=== PATIENT | male | born 1950 | race Caucasian/White ===

== ENCOUNTER → 2017-05-03 | Outpatient (CLI) | payer MEDICARE, OTHER ==
[2017-05-03 07:21] LABS: Blood Urea Nitrogen 20 mg/dL (9-20); Non-African American GFR(MDRD) >60 (>60 ml/min/1.73 sqM)
--- NOTE | 2017-05-03 09:14 | CT ---
EXAMINATION TYPE: CT abdomen pelvis w con DATE OF EXAM: 05/03/2017 COMPARISON: Prior CT abdomen pelvis 05/31/2013 HISTORY: Diverticulitis CT DLP: 1143.4 mGycm Automated exposure control for dose reduction was used. TECHNIQUE: Helical acquisition of images from the lung bases through the pelvis have been completed. CONTRAST: Performed with Oral Contrast and with IV Contrast, patient injected with 100 mL of Omnipaque 300. FINDINGS: Postop changes are noted at the gastroesophageal junction which have been placed in the int erval. LUNG BASES: No significant abnormality is appreciated. AORTA: No significant abnormality is appreciated. LIVER/GB: Gallbladder is absent. Cholecystectomy has been performed in the interval. Liver shows low attenuation but improved as compared to prior exam. PANCREAS: There is low attenuation present in the head of pancreas, uncinate process which is new com pared to prior exam.. SPLEEN: No significant abnormality is seen. ADRENALS: No significant abnormality is seen. KIDNEYS: No significant abnormality is seen. REPRODUCTIVE ORGANS: No significant abnormality is seen BOWEL: No significant abnormality is seen. FREE AIR: No Free Air visible. ASCITES: None visible. PELVIC ADENOPATHY: None visualized. Left inguinal hernia contains fat. RETROPERITONEAL ADENOPATHY: No Retroperitoneal Adenopathy visible. URINARY BLADDER: No significant abnormality is seen. OSSEOUS STRUCTURES: Postop changes are noted lumbar spine, new compared to prior. IMPRESSION: FINDINGS SUGGESTIVE OF PANCREATIC HEAD MASS, CONSIDER MRI FOLLOW-UP. Suggestion additional findings jeffrey fuentes.
== END | disposition home or self-care (01) ==
LOC: RADCTMAIN 06:27
PROVIDERS: ATTEND Surgery
DX: K57.32 Diverticulitis of large intestine without perforation or abscess without bleeding (principal)
CPT/HCPCS: 82565; 84520; 74177; 36415; Q9967

== ENCOUNTER → 2018-05-30 | Day surgery (SDC) | payer MEDICARE, OTHER ==
[2018-05-26 10:18] VITALS: BMI 26.6
[~2018-05-30] MED LIST: ALBUTEROL NEBULIZED 2.5 MG/3 ML INHALATION STA; LACTATED RINGERS 1,000 ML IV SCH; LIDOCAINE 1% 20 ML VIAL (10MG/ML) FOR IV START INTRADERMA PRN; LIDOCAINE 1% INJ 10MG/ML (20 ML MDV) ONE; LIDOCAINE 4% (PF) 5 ML AMP IH STA; MIDAZOLAM (PF) 2 MG/2 ML VIAL IV PRN; PROPOFOL 10 MG/ML 20 ML VIAL IV ONE
[2018-05-30 08:38] LABS: Glucose,Whole Blood 139 mg/dL (75-99)
[2018-05-30 08:49] VITALS: TEMP 98.2
--- NOTE | 2018-05-30 09:47 | P.GSHP ---
History of Present Illness H&P Date: 05/30/18 Chief Complaint: Gastritis, epigastric pain This is a 67-year-old male who presents today for EGD. Patient's had complaints of gastritis and epigastric pain. Had a recent pancreatic MRI which is normal. Past Medical History Past Medical History: Asthma, Cancer, CVA/TIA, Diabetes Mellitus, GERD/Reflux, Hypertension, Myocardial Infarction ([place]), Musculoskeletal Disorder, Osteoarthritis (OA), Pneumonia Additional Past Medical History / Comment(s): TIA, hiatal hernia, hx. 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 shoulder ; rt ing hernia, eye lid surgery ; sinus polyps, mike fundloplication, COLONOSCOPY, EGD Past Anesthesia/Blood Transfusion Reactions: Previous Problems w/ Anesthesia Additional Past Anesthesia/Blood Transfusion Reaction / Comment(s): very slow to wake up, aspirated during an endo. procedure Smoking Status: Current every day smoker - Past Family History Mother Family Medical History: No Reported History Medications and Allergies Home Medications Medication Instructions Recorded Confirmed Type Cyclobenzaprine [Flexeril] 10 mg PO TID PRN 06/11/15 05/30/18 History Liraglutide [Victoza 2-Blaise] 1.8 mg SQ 1200 06/11/15 05/30/18 History HYDROcodone/APAP 7.5-325MG [[place] 1 tab PO Q6HR PRN #28 tab 07/03/15 05/30/18 Rx 7.5-325] Lisinopril [Zestril] 10 mg PO DAILY #30 tab 07/04/15 05/30/18 Rx amLODIPine [Norvasc] 5 mg PO DAILY #30 tab 07/04/15 05/30/18 Rx Ipratropium [place] [Atrovent Hfa] 2 puff INHALATION QID 05/21/16 05/30/18 History Dapagliflozin Propanediol [Farxiga] 10 mg PO DAILY 05/26/18 05/30/18 History Allergies Allergy/AdvReac Type Severity Reaction Status Date / Time mold Allergy Anaphylaxis Verified 05/30/18 08:10 prochlorperazine Allergy affected Verified 05/30/18 08:10 [From Compazine] liver function prochlorperazine edisylate Allergy affected Verified 05/30/18 08:10 [From Compazine] liver function prochlorperazine maleate Allergy affected Verified 05/30/18 08:10 [From Compazine] liver function Surgical - Exam Vital Signs Temp Pulse BP Pulse Ox 98.2 F 80 145/72 98 05/30/18 08:20 05/30/18 08:20 05/30/18 08:20 05/30/18 08:20 - General well developed, no distress - Eyes PERRL - ENT normal pinna - Neck no masses - Respiratory normal expansion - Cardiovascular Rhythm: regular - Abdomen Abdomen: soft, non tender Results - Labs Abnormal Lab Results - Last 24 Hours (Table) 05/30/18 Range/Units 08:27 POC Glucose (mg/dL) 139 H (75-99) mg/dL Assessment and Plan Assessment: Epigastric pain, gastritis. We'll perform EGD.
--- NOTE | 2018-05-30 09:54 | P.OP ---
Date of Procedure: 05/30/18 Preoperative Diagnosis: Gastritis Postoperative Diagnosis: Mild antral gastritis No evidence of hiatal hernia No evidence of esophagitis Procedure(s) Performed: EGD Anesthesia: MAC Surgeon: Adrián Cook Pathology: other (Antrum,s) Condition: stable Disposition: PACU Description of Procedure: The patient's placed on the endoscopy table in the lateral position. He received IV sedation. The gastroscope placed oropharynx passed in the esophagus and stomach. Scope was then placed through the pylorus. The first and second portion duodenum appeared normal. Scope was then brought back the antrum this was mildly inflamed. A biopsies performed. Scope was then retroflexed the remainder some appeared normal. There is known to hiatal hernia. The GE junction was at 40 cm the distal esophagus appeared normal. The proximal esophagus appeared normal. Scope was withdrawn for patient.
[2018-05-30 11:04] VITALS: BP 155/76; PULSE 73; RESP 16
[2018-05-30 11:17] LABS: Glucose,Whole Blood 122 mg/dL (75-99)
== END | disposition home or self-care (01) ==
LOC: ORWHC2ENDO 07:49
PROVIDERS: ATTEND Surgery
DX: K29.50 Unspecified chronic gastritis without bleeding (principal); K21.9 Gastro-esophageal reflux disease without esophagitis; K44.9 Diaphragmatic hernia without obstruction or gangrene; J45.909 Unspecified asthma, uncomplicated; I25.2 Old myocardial infarction; I10 Essential (primary) hypertension; E11.9 Type 2 diabetes mellitus without complications; M19.90 Unspecified osteoarthritis, unspecified site; L40.9 Psoriasis, unspecified; Z86.73 Personal history of transient ischemic attack (TIA), and cerebral infarction without residual deficits; G43.909 Migraine, unspecified, not intractable, without status migrainosus; Z86.14 Personal history of Methicillin resistant Staphylococcus aureus infection; Z79.899 Other long term (current) drug therapy; Z88.8 Allergy status to other drugs, medicaments and biological substances; F17.210 Nicotine dependence, cigarettes, uncomplicated; Z79.4 Long term (current) use of insulin
CPT/HCPCS: 94640; 88305; 43239; J2001; J2704

== ENCOUNTER 2018-06-18 21:00 | Emergency (ER) | payer MEDICARE, OTHER ==
[2018-06-18] MEDS ORDERED: SODIUM CHLORIDE 0.9% 1,000 ML IV ONE (21:39)
[2018-06-18 21:41] VITALS: RESP 18
[2018-06-18] MEDS ORDERED: ONDANSETRON 4 MG/2 ML VIAL IVP STA (21:41)
[2018-06-18] MEDS ORDERED: METHOCARBAMOL 500 MG TAB PO STA (21:46)
[2018-06-18 22:44] LABS: Basophils % (A) 0 %; Eosinophils % (A) 0 %; HCT 54.4 % (39.0-53.0); HGB 17.7 gm/dL (13.0-17.5); Lymphocytes # (A) 0.7 k/uL (1.0-4.8); Lymphocytes % (A) 5 %; MCH 29.9 pg (25.0-35.0); MCHC 32.6 g/dL (31.0-37.0); MCV 91.8 fL (80.0-100.0); Mean Platelet Volume 7.3; Monocytes # (A) 0.5 k/uL (0-1.0); Monocytes % (A) 4 %; Neutrophils # (A) 12.4 k/uL (1.3-7.7); Neutrophils % (A) 90 %; Platelet Count 230 k/uL (150-450); RBC 5.92 m/uL (4.30-5.90); RDW 13.2 % (11.5-15.5); WBC 13.8 k/uL (3.8-10.6)
--- NOTE | 2018-06-18 22:46 | ED ---
Abdominal Pain HPI - General Chief Complaint: Abdominal Pain Stated Complaint: Back and Flank pt Time Seen by Provider: 06/18/18 21:29 Source: patient, EMS Mode of arrival: EMS Limitations: no limitations - History of Present Illness Initial Comments: 67-year-old male presenting with intermittent left-sided flank pain that began yesterday, is not alleviated or exacerbated by anything, occur sporadically, and resolved spontaneously. CT try to Flexeril and a [place] without relief. Admits to constipation and states he is a history of diverticulitis. His last colonoscopy was 2 years prior and he states it was normal. He admits to nausea but denies any vomiting, fevers or chills, urinary symptoms, hematuria, history of kidney stones. Denies chest pain or shortness breath. Denies injury to the area. - Related Data Home Medications Medication Instructions Recorded Confirmed Cyclobenzaprine [Flexeril] 10 mg PO TID PRN 06/11/15 05/30/18 Liraglutide [Victoza 2-Blaise] 1.8 mg SQ 1200 06/11/15 05/30/18 Ipratropium [place] [Atrovent Hfa] 2 puff INHALATION QID 05/21/16 05/30/18 Dapagliflozin Propanediol [Farxiga] 10 mg PO DAILY 05/26/18 05/30/18 Previous Rx's Medication Instructions Recorded HYDROcodone/APAP 7.5-325MG [[place] 1 tab PO Q6HR PRN #28 tab 07/03/15 7.5-325] Lisinopril [Zestril] 10 mg PO DAILY #30 tab 07/04/15 amLODIPine [Norvasc] 5 mg PO DAILY #30 tab 07/04/15 Magnesium Citrate [Citrate of 296 ml PO ONCE #296 ml 06/19/18 Magnesia] Methocarbamol [Robaxin] 1,000 mg PO QID PRN #12 tab 06/19/18 Allergies Allergy/AdvReac Type Severity Reaction Status Date / Time mold Allergy Anaphylaxis Verified 05/30/18 08:10 prochlorperazine Allergy affected Verified 05/30/18 08:10 [From Compazine] liver function prochlorperazine edisylate Allergy affected Verified 05/30/18 08:10 [From Compazine] liver function prochlorperazine maleate Allergy affected Verified 05/30/18 08:10 [From Compazine] liver function Review of Systems ROS Statement: Those systems with pertinent positive or pertinent negative responses have been documented in the HPI. Review of Systems Constitutional: Denies fever, chills Eyes: Denies change in vision, Denies pain Ears, nose, mouth, throat: Denies headaches, Denies sore throat Cardiovascular: Denies chest pain. Denies palpitations Respiratory: Denies shortness of breath, Denies cough Gastrointestinal: Positive abdominal pain. Positive nausea, denies vomiting, diarrhea. Genitourinary: Denies hematuria, Denies infections Musculoskeletal: Denies pain, Denies swelling Integumentary: Denies rash Neurological: Denies headache, focal weakness, focal numbness Psychiatric: Denies anxiety, Denies depression Hematologic/Lymphatic: Denies easy bleeding or bruising ROS Other: All systems not noted in ROS Statement are negative. Past Medical History Past Medical History: Asthma, Cancer, CVA/TIA, Diabetes Mellitus, GERD/Reflux, Hypertension, Myocardial Infarction ([place]), Musculoskeletal Disorder, Osteoarthritis (OA), Pneumonia Additional Past Medical History / Comment(s): TIA, hiatal hernia, hx. 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 shoulder ; rt ing hernia, eye lid surgery ; sinus polyps, mike fundloplication, COLONOSCOPY, EGD Past Anesthesia/Blood Transfusion Reactions: Previous Problems w/ Anesthesia Additional Past Anesthesia/Blood Transfusion Reaction / Comment(s): very slow to wake up, aspirated during an endo. procedure Past Psychological History: Depression Smoking Status: Current every day smoker - Past Family History Mother Family Medical History: No Reported History General Exam - General Exam Comments Initial Comments: General: Awake, alert, No acute Distress HENT: Normocephalic. Atraumatic Eyes: PERRL. EOMI. No scleral icterus. No injected conjunctiva Neck: Full ROM Chest/Lungs: Clear to auscultation bilaterally. No wheezing, rhonchi, or rales Cardiac: Regular rate, rhythm. No murmurs or rubs Abdomen/GI: Soft, nontender, nondistended. No rebound, guarding, or rigidity. Musculoskeletal: Full ROM Skin: Warm, dry, intact Neurologic: A/Ox3, no weakness, no sensory deficit, no abnormal gait, no coordination deficit Limitations: no limitations Course Vital Signs 06/18/18 21:20 Temperature 99.2 F Pulse Rate 58 L Respiratory 18 Rate Blood Pressure 139/83 O2 Sat by Pulse 98 Oximetry Medical Decision Making - Medical Decision Making 67-year-old male presenting with left flank pain and constipation. An initial exam the patient is awake, alert, no acute distress. VSS. Patient's EKG was similar to previous. He had no saddle anesthesia or midline back pain. His laboratory workup revealed hyperkalemia however the specimen was hemolyzed and the patient had no hyperkalemic changes on EKG. He also had normal kidney function, therefore at this time unlikely that he actually has hyperkalemia. The patient did have an elevated hematocrit suggestive of some dehydration. He was given 1 L of IV fluids on the department. The patient never complained of any chest pain or shortness of breath, however troponin and chest x-ray were done to exclude atypical ACS presentation. Patient underwent a CT abdomen with and without which demonstrated constipation but otherwise was negative for acute process. On reevaluation the patient was sleeping comfortably in his room. He did have a leukocytosis on his laboratory workup however there is no evidence of infection on his exam. Review patient's previous records shows that he has had leukocytosis before unrelated to an infection. The patient was agreeable to outpatient follow-up. He did not provide a urinary sample however it is unlikely has UTI as he is not complaining of any testicular or penile pain , urinary symptoms, nor does he is a history of UTI. The patient was given prescriptions for Robaxin and magnesium citrate.No further emergent workup indicated. The patient was given return to ED instructions. They were instructed to follow up with their primary care provider. Stable for discharge at this time. - Lab Data Result diagrams: 06/18/18 22:25 06/18/18 22:25 Lab Results 06/18/18 06/18/18 06/18/18 Range/Units 22:25 22:25 22:25 WBC 13.8 H (3.8-10.6) k/uL RBC 5.92 H (4.30-5.90) m/uL Hgb 17.7 H (13.0-17.5) gm/dL Hct 54.4 H (39.0-53.0) % MCV 91.8 (80.0-100.0) fL MCH 29.9 (25.0-35.0) pg MCHC 32.6 (31.0-37.0) g/dL RDW 13.2 (11.5-15.5) % Plt Count 230 (150-450) k/uL Neutrophils % 90 % Lymphocytes % 5 % Monocytes % 4 % Eosinophils % 0 % Basophils % 0 % Neutrophils # 12.4 H (1.3-7.7) k/uL Lymphocytes # 0.7 L (1.0-4.8) k/uL Monocytes # 0.5 (0-1.0) k/uL Eosinophils # 0.0 (0-0.7) k/uL Basophils # 0.0 (0-0.2) k/uL Sodium 137 (137-145) mmol/L Potassium 6.0 H (3.5-5.1) mmol/L Chloride 101 (98-107) mmol/L Carbon Dioxide 23 (22-30) mmol/L Anion Gap 13 mmol/L BUN 21 H (9-20) mg/dL Creatinine 0.88 (0.66-1.25) mg/dL Est GFR (CKD-EPI)AfAm >90 (>60 ml/min/1.73 sqM) Est GFR (CKD-EPI)NonAf 90 (>60 ml/min/1.73 sqM) Glucose 157 H (74-99) mg/dL Calcium 9.7 (8.4-10.2) mg/dL Troponin I (0.000-0.034) ng/mL NT-Pro-B Natriuret Pep 43 pg/mL 06/18/18 Range/Units 22:25 WBC (3.8-10.6) k/uL RBC (4.30-5.90) m/uL Hgb (13.0-17.5) gm/dL Hct (39.0-53.0) % MCV (80.0-100.0) fL MCH (25.0-35.0) pg MCHC (31.0-37.0) g/dL RDW (11.5-15.5) % Plt Count (150-450) k/uL Neutrophils % % Lymphocytes % % Monocytes % % Eosinophils % % Basophils % % Neutrophils # (1.3-7.7) k/uL Lymphocytes # (1.0-4.8) k/uL Monocytes # (0-1.0) k/uL Eosinophils # (0-0.7) k/uL Basophils # (0-0.2) k/uL Sodium (137-145) mmol/L Potassium (3.5-5.1) mmol/L Chloride (98-107) mmol/L Carbon Dioxide (22-30) mmol/L Anion Gap mmol/L BUN (9-20) mg/dL Creatinine (0.66-1.25) mg/dL Est GFR (CKD-EPI)AfAm (>60 ml/min/1.73 sqM) Est GFR (CKD-EPI)NonAf (>60 ml/min/1.73 sqM) Glucose (74-99) mg/dL Calcium (8.4-10.2) mg/dL Troponin I <0.012 (0.000-0.034) ng/mL NT-Pro-B Natriuret Pep pg/mL - EKG Data EKG Comments: EKG shows normal sinus rhythm at a rate of 62 bpm. It is similar to EKG from . Disposition Clinical Impression: Left flank pain, Constipation, Leukocytosis, Dehydration Disposition: HOME SELF-CARE Condition: Good Instructions: Constipation (ED), Abdominal Pain (ED), Flank Pain (ED) Prescriptions: Magnesium Citrate [Citrate of Magnesia] 296 ml PO ONCE #296 ml Methocarbamol [Robaxin] 1,000 mg PO QID PRN #12 tab PRN Reason: Pain Is patient prescribed a controlled substance at d/c from ED?: Yes When asked, does pt state using other controlled substances?: Yes If prescribed controlled substance>3 days was MAPS reviewed?: Prescribed <3 Days If Rx opioid, was Start Talking consent form obtained?: No Referrals: Evelia Dodd DO [Primary Care Provider] - 1-2 days
--- NOTE | 2018-06-18 22:50 | XR ---
EXAMINATION TYPE: XR chest 2V DATE OF EXAM: 06/18/2018 COMPARISON: NONE HISTORY: Chest pain TECHNIQUE: Frontal and lateral views of the chest are obtained. FINDINGS: Heart and mediastinum are normal. Lungs are clear of infiltrate. There is no pleural effus ion. Bony thorax is intact. IMPRESSION: No active cardiopulmonary disease.
[2018-06-18 22:58] LABS: Anion Gap 13 mmol/L; Blood Urea Nitrogen 21 mg/dL (9-20); Calcium 9.7 mg/dL (8.4-10.2); Carbon Dioxide 23 mmol/L (22-30); Chloride 101 mmol/L (98-107); Glucose 157 mg/dL (74-99); Sodium 137 mmol/L (137-145)
--- NOTE | 2018-06-19 00:44 | CT ---
EXAMINATION TYPE: CT abdomen pelvis wo/w con DATE OF EXAM: 06/19/2018 COMPARISON: 05/03/2017 HISTORY: abdominal pain CT DLP: 1764.7 mGycm Automated exposure control for dose reduction was used. TECHNIQUE: Helical acquisition of images was performed from the lung bases through the pelvis. Images were obtained with and without contrast. CONTRAST: Performed without Oral Contrast and with IV Contrast, patient injected with 100mL mL of Isovue 300. FINDINGS: There is patchy atelectasis at the lung bases. There is no pleural effusion. Heart size is normal. Th e liver shows no focal defect. There is no adrenal mass. Kidneys of normal size and contour. There is satisfactory contrast opacification of the kidneys. There is no hydronephrosis. Ureters are not dila doron. There is no retroperitoneal adenopathy. Abdominal aorta is atheromatous. Bladder distends smooth ly. There is no inguinal hernia. There is no free fluid in the pelvis. There is a large amount of fec al material in the cecum. The appendix appears normal. There are some sigmoid diverticula without luis dence of diverticulitis. There is no mesenteric edema. Liver spleen pancreas appear normal. Bile ducts are not dilated. Gallbladder is not seen. There is posterior fusion surgery from L2 to S1 vertebra. I see no compression fracture. There is no focal bony destructive process. The bony pelvis is intact. There is no sign of free air.. IMPRESSION: THERE IS SOME CONSTIPATION. NO EVIDENCE OF DIVERTICULITIS. NO RENAL STONE OR OBSTRUCTION. THERE IS NE W ATELECTASIS AT THE LUNG BASES COMPARED TO OLD EXAM.
[2018-06-19 01:28] VITALS: BP 148/85; PULSE 65; TEMP 98.6
== END 2018-06-19 01:33 | disposition home or self-care (01) ==
LOC: EC 21:00
DX: E86.0 Dehydration (principal); K59.00 Constipation, unspecified; D72.829 Elevated white blood cell count, unspecified; R71.8 Other abnormality of red blood cells; R11.0 Nausea; J45.909 Unspecified asthma, uncomplicated; E11.9 Type 2 diabetes mellitus without complications; F17.200 Nicotine dependence, unspecified, uncomplicated; Z88.8 Allergy status to other drugs, medicaments and biological substances; Z91.048 Other nonmedicinal substance allergy status; Z79.84 Long term (current) use of oral hypoglycemic drugs; Z79.899 Other long term (current) drug therapy; Z86.14 Personal history of Methicillin resistant Staphylococcus aureus infection; Z85.9 Personal history of malignant neoplasm, unspecified
CPT/HCPCS: 36415; 93005; 83880; 80048; 84484; 85025; 71046; 74178; 99285; 96374; 96361 ×3; J2405; Q9967

== ENCOUNTER 2019-03-11 09:44 | Inpatient (IN) | payer MEDICARE, OTHER ==
[2019-03-11] MEDS ORDERED: SODIUM CHLORIDE 0.9% 1,000 ML IV ONE (10:17)
--- NOTE | 2019-03-11 10:38 | ED ---
Abdominal Pain HPI - General Chief Complaint: Abdominal Pain Stated Complaint: Diverticulitis Time Seen by Provider: 03/11/19 09:55 Source: patient, RN notes reviewed Mode of arrival: ambulatory Limitations: no limitations - History of Present Illness Initial Comments: This a 68-year-old male presents emergency department she went left-sided abdominal pain. Patient states that it's increase the last day or so. Patient states that he's had some diarrhea denies any melena or hematochezia. Patient has no dysuria no hematuria. Patient states that he does have a history of diverticulitis has been recommended to have surgery in the past. Patient denies any fevers or chills no chest pain or shortness of breath. Patient does complain has chronic back pain there is had extensive back surgery. Patient takes Tylenol for his discomfort. He denies any bowel bladder incontinence or retention. Patient states nothing makes his pain feel better or worse at this time. No history kidney stones. - Related Data Home Medications Medication Instructions Recorded Confirmed Cyclobenzaprine [Flexeril] 10 mg PO TID PRN 06/11/15 05/30/18 Liraglutide [Victoza 2-Blaise] 1.8 mg SQ 1200 06/11/15 05/30/18 Ipratropium [place] [Atrovent Hfa] 2 puff INHALATION QID 05/21/16 05/30/18 Dapagliflozin Propanediol [Farxiga] 10 mg PO DAILY 05/26/18 05/30/18 Previous Rx's Medication Instructions Recorded HYDROcodone/APAP 7.5-325MG [[place] 1 tab PO Q6HR PRN #28 tab 07/03/15 7.5-325] Lisinopril [Zestril] 10 mg PO DAILY #30 tab 07/04/15 amLODIPine [Norvasc] 5 mg PO DAILY #30 tab 07/04/15 Magnesium Citrate [Citrate of 296 ml PO ONCE #296 ml 06/19/18 Magnesia] Methocarbamol [Robaxin] 1,000 mg PO QID PRN #12 tab 06/19/18 Allergies Allergy/AdvReac Type Severity Reaction Status Date / Time mold Allergy Anaphylaxis Verified 03/11/19 09:48 prochlorperazine Allergy affected Verified 03/11/19 09:48 [From Compazine] liver function prochlorperazine edisylate Allergy affected Verified 03/11/19 09:48 [From Compazine] liver function prochlorperazine maleate Allergy affected Verified 03/11/19 09:48 [From Compazine] liver function Review of Systems ROS Statement: Those systems with pertinent positive or pertinent negative responses have been documented in the HPI. ROS Other: All systems not noted in ROS Statement are negative. Past Medical History Past Medical History: Asthma, Cancer, CVA/TIA, Diabetes Mellitus, GERD/Reflux, Hypertension, Myocardial Infarction ([place]), Musculoskeletal Disorder, Osteoarthritis (OA), Pneumonia Additional Past Medical History / Comment(s): TIA, hiatal hernia, hx. 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 shoulder ; rt ing hernia, eye lid surgery ; sinus polyps, mike fundloplication, COLONOSCOPY, EGD Past Anesthesia/Blood Transfusion Reactions: Previous Problems w/ Anesthesia Additional Past Anesthesia/Blood Transfusion Reaction / Comment(s): very slow to wake up, aspirated during an endo. procedure Past Psychological History: Depression Smoking Status: Current every day smoker - Past Family History Mother Family Medical History: No Reported History General Exam Limitations: no limitations General appearance: alert, in no apparent distress Head exam: Present: atraumatic, normocephalic, normal inspection Eye exam: Present: normal appearance, PERRL, EOMI. Absent: scleral icterus, conjunctival injection, periorbital swelling Respiratory exam: Present: normal lung sounds bilaterally. Absent: respiratory distress, wheezes, rales, rhonchi, stridor Cardiovascular Exam: Present: regular rate, normal rhythm, normal heart sounds. Absent: systolic murmur, diastolic murmur, rubs, gallop, clicks GI/Abdominal exam: Present: soft, tenderness (Moderate left-sided), normal bowel sounds. Absent: distended, guarding, rebound, rigid Back exam: Present: full ROM. Absent: normal inspection (Old scarring noted), tenderness, CVA tenderness (R), CVA tenderness (L) Neurological exam: Present: alert, oriented X3, CN II-XII intact Skin exam: Present: warm, dry, intact, normal color. Absent: rash Course Vital Signs 03/11/19 03/11/19 09:47 12:05 Temperature 97.4 F L 98 F Pulse Rate 85 58 L Respiratory 18 18 Rate Blood Pressure 148/88 142/79 O2 Sat by Pulse 98 98 Oximetry Medical Decision Making - Medical Decision Making 68-year-old male presented for abdominal pain. Patient CT shows evidence of partial bowel structure. Patient does have leukocytosis no evidence of d iverticulitis at this time. He does have a history of this. Patient will be admitted for evaluation and bowel rest and IV hydration. - Lab Data Result diagrams: 03/11/19 10:45 03/11/19 10:45 Lab Results 03/11/19 03/11/19 03/11/19 Range/Units 10:45 10:45 10:45 WBC 19.7 H (3.8-10.6) k/uL RBC 5.47 (4.30-5.90) m/uL Hgb 16.8 (13.0-17.5) gm/dL Hct 50.2 (39.0-53.0) % MCV 91.8 (80.0-100.0) fL MCH 30.8 (25.0-35.0) pg MCHC 33.6 (31.0-37.0) g/dL RDW 13.4 (11.5-15.5) % Plt Count 232 (150-450) k/uL Neutrophils % 88 % Lymphocytes % 5 % Monocytes % 4 % Eosinophils % 0 % Basophils % 2 % Neutrophils # 17.3 H (1.3-7.7) k/uL Lymphocytes # 1.0 (1.0-4.8) k/uL Monocytes # 0.8 (0-1.0) k/uL Eosinophils # 0.1 (0-0.7) k/uL Basophils # 0.3 H (0-0.2) k/uL Sodium 135 L (137-145) mmol/L Potassium 4.7 (3.5-5.1) mmol/L Chloride 104 (98-107) mmol/L Carbon Dioxide 21 L (22-30) mmol/L Anion Gap 10 mmol/L BUN 23 H (9-20) mg/dL Creatinine 0.80 (0.66-1.25) mg/dL Est GFR (CKD-EPI)AfAm >90 (>60 ml/min/1.73 sqM) Est GFR (CKD-EPI)NonAf >90 (>60 ml/min/1.73 sqM) Glucose 165 H (74-99) mg/dL Plasma Lactic Acid [place] 0.8 (0.7-2.0) mmol/L Calcium 9.8 (8.4-10.2) mg/dL Total Bilirubin 1.0 (0.2-1.3) mg/dL AST 18 (17-59) U/L ALT 24 (21-72) U/L Alkaline Phosphatase 79 (38-126) U/L Total Protein 7.5 (6.3-8.2) g/dL Albumin 4.3 (3.5-5.0) g/dL Amylase 106 (30-110) U/L Lipase 163 (23-300) U/L Urine Color Urine Appearance (Clear) Urine pH (5.0-8.0) Ur Specific [place] (1.001-1.035) Urine Protein (Negative) Urine Glucose (UA) (Negative) Urine Ketones (Negative) Urine Blood (Negative) Urine Nitrite (Negative) Urine Bilirubin (Negative) Urine Urobilinogen (<2.0) mg/dL Ur Leukocyte Esterase (Negative) 03/11/19 Range/Units 10:45 WBC (3.8-10.6) k/uL RBC (4.30-5.90) m/uL Hgb (13.0-17.5) gm/dL Hct (39.0-53.0) % MCV (80.0-100.0) fL MCH (25.0-35.0) pg MCHC (31.0-37.0) g/dL RDW (11.5-15.5) % Plt Count (150-450) k/uL Neutrophils % % Lymphocytes % % Monocytes % % Eosinophils % % Basophils % % Neutrophils # (1.3-7.7) k/uL Lymphocytes # (1.0-4.8) k/uL Monocytes # (0-1.0) k/uL Eosinophils # (0-0.7) k/uL Basophils # (0-0.2) k/uL Sodium (137-145) mmol/L Potassium (3.5-5.1) mmol/L Chloride (98-107) mmol/L Carbon Dioxide (22-30) mmol/L Anion Gap mmol/L BUN (9-20) mg/dL Creatinine (0.66-1.25) mg/dL Est GFR (CKD-EPI)AfAm (>60 ml/min/1.73 sqM) Est GFR (CKD-EPI)NonAf (>60 ml/min/1.73 sqM) Glucose (74-99) mg/dL Plasma Lactic Acid [place] (0.7-2.0) mmol/L Calcium (8.4-10.2) mg/dL Total Bilirubin (0.2-1.3) mg/dL AST (17-59) U/L ALT (21-72) U/L Alkaline Phosphatase (38-126) U/L Total Protein (6.3-8.2) g/dL Albumin (3.5-5.0) g/dL Amylase (30-110) U/L Lipase (23-300) U/L Urine Color Yellow Urine Appearance Clear (Clear) Urine pH 5.0 (5.0-8.0) Ur Specific [place] 1.040 H (1.001-1.035) Urine Protein Negative (Negative) Urine Glucose (UA) 4+ H (Negative) Urine Ketones Trace H (Negative) Urine Blood Negative (Negative) Urine Nitrite Negative (Negative) Urine Bilirubin Negative (Negative) Urine Urobilinogen <2.0 (<2.0) mg/dL Ur Leukocyte Esterase Negative (Negative) Disposition Clinical Impression: Abdominal pain, Partial small bowel obstruction Disposition: ADMITTED IP TO THIS [facility] Condition: Fair Referrals: Evelia Dodd DO [Primary Care Provider] - 1-2 days
[2019-03-11 10:59] LABS: Basophils # (A) 0.3 k/uL (0-0.2); Basophils % (A) 2 %; Eosinophils # (A) 0.1 k/uL (0-0.7); Eosinophils % (A) 0 %; HCT 50.2 % (39.0-53.0); HGB 16.8 gm/dL (13.0-17.5); Lymphocytes % (A) 5 %; MCH 30.8 pg (25.0-35.0); MCHC 33.6 g/dL (31.0-37.0); MCV 91.8 fL (80.0-100.0); Monocytes # (A) 0.8 k/uL (0-1.0); Monocytes % (A) 4 %; Neutrophils # (A) 17.3 k/uL (1.3-7.7); Neutrophils % (A) 88 %; Platelet Count 232 k/uL (150-450); RBC 5.47 m/uL (4.30-5.90); RDW 13.4 % (11.5-15.5); WBC 19.7 k/uL (3.8-10.6)
[2019-03-11 11:03] LABS: Appearance,Urine Clear (Clear); Bilirubin,Urine Negative (Negative); Blood,Urine Negative (Negative); Color,Urine Yellow; Glucose,Urine (UA) 4+ (Negative); Ketones,Urine Trace (Negative); Leukocyte Esterase,Urine Negative (Negative); Nitrite,Urine Negative (Negative); Protein,Urine Negative (Negative); Urobilinogen,Urine <2.0 mg/dL (<2.0)
[2019-03-11 11:10] LABS: ALT 24 U/L (21-72); AST 18 U/L (17-59); African American GFR (CKD) >90 (>60 ml/min/1.73 sqM); Albumin 4.3 g/dL (3.5-5.0); Alkaline Phosphatase 79 U/L (38-126); Amylase 106 U/L (30-110); Anion Gap 10 mmol/L; Blood Urea Nitrogen 23 mg/dL (9-20); Calcium 9.8 mg/dL (8.4-10.2); Carbon Dioxide 21 mmol/L (22-30); Chloride 104 mmol/L (98-107); Glucose 165 mg/dL (74-99); Potassium 4.7 mmol/L (3.5-5.1); Sodium 135 mmol/L (137-145); Total Protein 7.5 g/dL (6.3-8.2)
--- NOTE | 2019-03-11 12:26 | CT ---
EXAMINATION TYPE: CT abdomen pelvis w con DATE OF EXAM: 03/11/2019 REFERENCE: Previous study dated 06/19/2018. HISTORY: Left-sided abdominal pain history of diverticulitis HISTORY: Left sided abdominal pain CT DLP: 1081.5 mGy Automated exposure control for dose reduction was used. TECHNIQUE: Helical acquisition through the abdomen and pelvis was obtained following the oral ingesti on of without Oral Contrast and following intravenous administration of 100 mL of Isovue 300. The nicole a was reformatted in axial, coronal and sagittal projections. FINDINGS: Visualized portions of the lungs are clear. There is no pleural or pericardial fluid. The heart is not enlarged. Within the abdomen, the gallbladder is not identified. The liver and spleen appear normal. There is a small splenule at the inferior tip of the spleen. Both adrenal glands are normal. Both kidneys demonstrate function and appear morphologically normal. The pancreas is unremarkable. There is no significant retroperitoneal, iliac or inguinal adenopathy. The bladder is unremarkable. There is no significant diverticular change and there is no radiographic evidence of diverticulitis. The appendix is normal. There is mild prominence of the proximal small bowel. Distal small bowel loops are more normal in suhail earance. The transition point appears to be in the midabdomen best seen on image 29. There is no free fluid and no free air. There is been a previous interpedicular fusion extending from L2 to S1. IMPRESSION: 1. MODERATE PROXIMAL SMALL BOWEL DILATATION WITH TRANSITION POINT IN THE MID ABDOMEN BEST SEEN ON EDIE GE 29. PARTIAL SMALL BOWEL OBSTRUCTION VERSUS ENTERITIS. 2. POSTSURGICAL CHANGES WITHIN THE SPINE
[2019-03-11] MEDS ORDERED: NALOXONE 0.4 MG/ML 1 ML VIAL IV PRN (12:42)
[2019-03-11] MEDS: SODIUM CHLORIDE 0.9% 1,000 ML IV SCH (13:25)
[2019-03-11] MEDS: KETOROLAC 30 MG/ML 1 ML VIAL IVP PRN (13:29)
[2019-03-11] MEDS: ONDANSETRON 4 MG/2 ML VIAL IVP PRN (15:34)
[2019-03-11] MEDS: INSULIN ASPART (NovoLOG) 100 UNIT/ML VIAL SQ SCH ×2 (16:57→23:31)
[2019-03-11 16:58] LABS: Glucose,Whole Blood 114 mg/dL (75-99)
[2019-03-11 21:15] LABS: Glucose,Whole Blood 107 mg/dL (75-99)
[2019-03-12] MEDS: KETOROLAC 30 MG/ML 1 ML VIAL IVP PRN ×4 (00:01→23:46)
[2019-03-12] MEDS: ONDANSETRON 4 MG/2 ML VIAL IVP PRN (00:01)
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
[2019-03-12] MEDS: SODIUM CHLORIDE 0.9% 1,000 ML IV SCH ×3 (03:06→20:57)
[2019-03-12] MEDS: HYDROmorphone 0.5 MG/0.5 ML SYRINGE IVP PRN (05:31)
[2019-03-12 07:11] LABS: Glucose,Whole Blood 107 mg/dL (75-99)
[2019-03-12] MEDS: INSULIN ASPART (NovoLOG) 100 UNIT/ML VIAL SQ SCH ×4 (07:23→21:52)
[2019-03-12] MEDS: DULoxetine HCL 20 MG CAPSULE.DR PO SCH (07:56)
[2019-03-12] MEDS: LISINOPRIL 10 MG TAB PO SCH (07:56)
[2019-03-12] MEDS: amLODIPine 5 MG TAB PO SCH (07:56)
[2019-03-12] MEDS: MONTELUKAST 10 MG TAB PO SCH (07:56)
[2019-03-12] MEDS: HEPARIN SODIUM,PORCINE 5,000 UNIT/ML 1 ML VIAL SQ SCH ×3 (07:57→23:23)
[2019-03-12 08:37] LABS: Basophils % (A) 0 %; Eosinophils # (A) 0.1 k/uL (0-0.7); Eosinophils % (A) 0 %; HCT 49.2 % (39.0-53.0); HGB 16.3 gm/dL (13.0-17.5); Lymphocytes # (A) 1.3 k/uL (1.0-4.8); Lymphocytes % (A) 7 %; MCHC 33.2 g/dL (31.0-37.0); MCV 93.3 fL (80.0-100.0); Mean Platelet Volume 7.5; Monocytes # (A) 1.1 k/uL (0-1.0); Monocytes % (A) 5 %; Neutrophils # (A) 17.1 k/uL (1.3-7.7); Neutrophils % (A) 86 %; Platelet Count 202 k/uL (150-450); RBC 5.27 m/uL (4.30-5.90); RDW 15.7 % (11.5-15.5); WBC 19.9 k/uL (3.8-10.6)
[2019-03-12 08:59] LABS: African American GFR (CKD) >90 (>60 ml/min/1.73 sqM); Anion Gap 14 mmol/L; Blood Urea Nitrogen 33 mg/dL (9-20); Calcium 8.8 mg/dL (8.4-10.2); Carbon Dioxide 18 mmol/L (22-30); Chloride 107 mmol/L (98-107); Glucose 100 mg/dL (74-99); Potassium 4.7 mmol/L (3.5-5.1); Sodium 139 mmol/L (137-145)
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
[2019-03-12 11:42] LABS: Glucose,Whole Blood 203 mg/dL (75-99)
--- NOTE | 2019-03-12 17:05 | P.PN ---
Subjective Progress Note Date: 03/12/19 Chief Complaint: Abdominal pain Patient is a 68-year-old male with a known history of hypertension, diabetes type 2, anxiety/depression, PTSD and other multiple medical problems and previous history of back surgery and abdominal surgery / hernia repair came to ER with complaints of abdominal pain mainly right lower abdominal pain. Patient says that his abdominal pain is getting worse for the last 2 days. Patient states that his abdominal discomfort is present for the past 1 week and is relieved by itself. Denied any diarrhea. No constipation. No recent illnesses. No complaints of chest pain or shortness of breath. No fever no chills. No bowel or bladder incontinence. Patient does have a history of chronic back pain and also history of extensive back surgery. Denied any narcotic pain medication use. CT abdomen and pelvis showed moderate proximal small bowel dilation with transition point in the mid abdomen. Partial small bowel obstruction versus enteritis. Postsurgical changes in the spine. 03/12/2019 Evaluated by surgery, no surgical recommendations at this time. Maintained on IV fluid hydration. Tolerating clear liquids with no nausea, passing flatus, no bowel movement. Vital signs stable. Containing O2 sats in the high 90s on room air. Afebrile, WBC 19. No tachycardia. Objective - Vital Signs Vital signs: Vital Signs Temp 97.4 F L 03/12/19 14:59 Pulse 58 L 03/12/19 14:59 Resp 16 03/12/19 15:33 BP 147/76 03/12/19 14:59 Pulse Ox 98 03/12/19 14:59 Intake & Output 03/11/19 03/12/19 03/12/19 18:59 06:59 18:59 Weight 77.111 kg Other: Voiding Method Toilet Toilet Urinal Urinal # Voids 0 2 3 # Bowel Movements 1 - Exam PHYSICAL EXAMINATION: Patient is lying in the bed comfortably, no acute distress, awake alert and oriented.. HEENT: Normocephalic. Neck is supple. Pupils reactive. Nostrils clear. Oral cavity is moist. Neck reveals no JVD, carotid bruits, or thyromegaly. CHEST EXAMINATION: Trachea is central. Symmetrical expansion. Lung paredes clear to auscultation and percussion. CARDIAC: Normal S1, S2 with no gallops. No murmurs ABDOMEN: Soft. Nontender. Bowel sounds initially. No distention.. No organomegaly. No abdominal bruits. Extremities: reveal no edema. No clubbing or cyanosis Neurologically awake, alert, oriented x3 with well-coordinated movements. No fo rodolfo deficits noted Skin: No rash or skin lesions. Psychiatric: Coperative. Musculoskeletal: No joint swelling or deformity. Normal range of motion. - Labs CBC & Chem 7: 03/12/19 07:35 03/12/19 07:35 Labs: Abnormal Lab Results - Last 24 Hours (Table) 03/11/19 03/11/19 03/12/19 Range/Units 16:55 21:14 07:09 WBC (3.8-10.6) k/uL RDW (11.5-15.5) % Neutrophils # (1.3-7.7) k/uL Monocytes # (0-1.0) k/uL Carbon Dioxide (22-30) mmol/L BUN (9-20) mg/dL Glucose (74-99) mg/dL POC Glucose (mg/dL) 114 H 107 H 107 H (75-99) mg/dL 03/12/19 03/12/19 03/12/19 Range/Units 07:35 07:35 11:40 WBC 19.9 H (3.8-10.6) k/uL RDW 15.7 H (11.5-15.5) % Neutrophils # 17.1 H (1.3-7.7) k/uL Monocytes # 1.1 H (0-1.0) k/uL Carbon Dioxide 18 L (22-30) mmol/L BUN 33 H (9-20) mg/dL Glucose 100 H (74-99) mg/dL POC Glucose (mg/dL) 203 H (75-99) mg/dL Assessment and Plan Assessment: Abdominal and secondary to partial small bowel obstruction. Possible adhesions. Possible enteritis. leukocytosis likely due to bowel obstruction. Rule out infection. And follow WBC tomorrow. History of cholecystectomy, back surgery and hernia repair. Hypertension controlled Diabetes type 2 [id number] GERD Asthma Chronic back pain and neck pain History of migraine headaches Anxiety/depression, PTSD History of alcohol abuse smoking and marijuana use DVT prophylaxis with heparin subc Plan: Continue on current medication regime ,monitoring and symptomatic treatment. Maintain IV fluid hydration. Increase ambulation as tolerated. Close monitoring of WBC with labs repeated in a.m. Follow closely withi surgery.Currently only passing flatus, discharge planning in progress pending improvement in bowel function/ bowel movement. Further recommendations to follow. The impression and plan of care has been dictated as directed. : I performed a history and examination of this patient, discussed the same with the dictator. I agree with the dictator's note ,documented as a scribe. Any additional findings or plans will be noted.
[2019-03-12 17:39] LABS: Glucose,Whole Blood 107 mg/dL (75-99)
[2019-03-12] MEDS: lamoTRIgine 100 MG TAB PO SCH (20:52)
[2019-03-12 21:34] LABS: Glucose,Whole Blood 156 mg/dL (75-99)
[2019-03-13] MEDS: HYDROmorphone 0.5 MG/0.5 ML SYRINGE IVP PRN (01:41)
[2019-03-13 07:22] LABS: Glucose,Whole Blood 142 mg/dL (75-99)
[2019-03-13 08:25] LABS: Basophils # (A) 0.1 k/uL (0-0.2); Basophils % (A) 0 %; Eosinophils # (A) 0.1 k/uL (0-0.7); Eosinophils % (A) 1 %; HCT 46.4 % (39.0-53.0); HGB 15.3 gm/dL (13.0-17.5); Lymphocytes # (A) 1.3 k/uL (1.0-4.8); Lymphocytes % (A) 7 %; MCH 30.6 pg (25.0-35.0); MCHC 32.9 g/dL (31.0-37.0); MCV 92.9 fL (80.0-100.0); Mean Platelet Volume 7.3; Monocytes # (A) 0.7 k/uL (0-1.0); Monocytes % (A) 4 %; Neutrophils # (A) 15.1 k/uL (1.3-7.7); Neutrophils % (A) 87 %; Platelet Count 186 k/uL (150-450); RDW 13.2 % (11.5-15.5); WBC 17.5 k/uL (3.8-10.6)
[2019-03-13] MEDS: amLODIPine 5 MG TAB PO SCH (08:45)
[2019-03-13] MEDS: INSULIN ASPART (NovoLOG) 100 UNIT/ML VIAL SQ SCH ×4 (08:45→21:19)
[2019-03-13] MEDS: HEPARIN SODIUM,PORCINE 5,000 UNIT/ML 1 ML VIAL SQ SCH ×2 (08:45→16:46)
[2019-03-13] MEDS: LISINOPRIL 10 MG TAB PO SCH (08:45)
[2019-03-13] MEDS: DULoxetine HCL 20 MG CAPSULE.DR PO SCH (08:45)
[2019-03-13] MEDS: MONTELUKAST 10 MG TAB PO SCH (08:45)
[2019-03-13] MEDS: SODIUM CHLORIDE 0.9% 1,000 ML IV SCH ×2 (08:46→16:53)
[2019-03-13 08:54] LABS: African American GFR (CKD) >90 (>60 ml/min/1.73 sqM); Anion Gap 8 mmol/L; Blood Urea Nitrogen 21 mg/dL (9-20); Calcium 8.4 mg/dL (8.4-10.2); Carbon Dioxide 22 mmol/L (22-30); Chloride 108 mmol/L (98-107); Glucose 130 mg/dL (74-99); Potassium 4.5 mmol/L (3.5-5.1); Sodium 138 mmol/L (137-145)
--- NOTE | 2019-03-13 10:20 | P.PN ---
Subjective Progress Note Date: 03/13/19 Patient seen and examined at bedside. States he is feeling much better. Has had flatus and bowel movements. Tolerating full liquid diet. Complains of left back pain. Objective - Vital Signs Vital signs: Vital Signs Temp 97.9 F 03/13/19 04:00 Pulse 58 L 03/13/19 04:00 Resp 18 03/13/19 04:00 BP 150/75 03/13/19 04:00 Pulse Ox 97 03/13/19 04:00 Intake & Output 03/12/19 03/13/19 03/13/19 18:59 06:59 18:59 Other: Voiding Method Toilet Urinal # Voids 3 1 # Bowel Movements 1 - Constitutional General appearance: Present: cooperative, no acute distress - Gastrointestinal Gastrointestinal Comment(s): Soft, nontender, nondistended, no rebound, no guarding - Labs CBC & Chem 7: 03/13/19 07:18 03/13/19 07:18 Labs: Abnormal Lab Results - Last 24 Hours (Table) 03/12/19 03/12/19 03/12/19 Range/Units 11:40 17:35 21:33 WBC (3.8-10.6) k/uL Neutrophils # (1.3-7.7) k/uL Chloride (98-107) mmol/L BUN (9-20) mg/dL Glucose (74-99) mg/dL POC Glucose (mg/dL) 203 H 107 H 156 H (75-99) mg/dL 03/13/19 03/13/19 03/13/19 Range/Units 07:09 07:18 07:18 WBC 17.5 H (3.8-10.6) k/uL Neutrophils # 15.1 H (1.3-7.7) k/uL Chloride 108 H (98-107) mmol/L BUN 21 H (9-20) mg/dL Glucose 130 H (74-99) mg/dL POC Glucose (mg/dL) 142 H (75-99) mg/dL Assessment and Plan (1) Abdominal pain Narrative/Plan: 68-year-old male with complaint of abdominal pain, seemingly resolved with complaints of left sided back pain - Patient has started to have bowel function with flatus and bowel movements. We will advance to a soft diet. - Patient continues to have leukocytosis. I did inquire with the patient and he states that he did have a steroid injection approximately 1 week ago. He does not appear to have any active infection at this time with no fevers or tachycardia. Leukocytosis may be secondary to steroid injection. We will continue to monitor. Current Visit: Yes Status: Acute Code(s): R10.9 - UNSPECIFIED ABDOMINAL PAIN SNOMED Code(s): 57192854
[2019-03-13] MEDS: KETOROLAC 30 MG/ML 1 ML VIAL IVP PRN ×3 (11:56→23:15)
[2019-03-13 12:00] LABS: Glucose,Whole Blood 152 mg/dL (75-99)
[2019-03-13] MEDS: CYCLOBENZAPRINE 5 MG TAB PO PRN (14:20)
[2019-03-13 15:42] VITALS: PULSE 60; RESP 16
--- NOTE | 2019-03-13 16:44 | P.PN ---
Subjective Progress Note Date: 03/13/19 Chief Complaint: Abdominal pain Patient is a 68-year-old male with a known history of hypertension, diabetes type 2, anxiety/depression, PTSD and other multiple medical problems and previous history of back surgery and abdominal surgery / hernia repair came to ER with complaints of abdominal pain mainly right lower abdominal pain. Patient says that his abdominal pain is getting worse for the last 2 days. Patient states that his abdominal discomfort is present for the past 1 week and is relieved by itself. Denied any diarrhea. No constipation. No recent illnesses. No complaints of chest pain or shortness of breath. No fever no chills. No bowel or bladder incontinence. Patient does have a history of chronic back pain and also history of extensive back surgery. Denied any narcotic pain medication use. CT abdomen and pelvis showed moderate proximal small bowel dilation with transition point in the mid abdomen. Partial small bowel obstruction versus enteritis. Postsurgical changes in the spine. 03/12/2019 Evaluated by surgery, no surgical recommendations at this time. Maintained on IV fluid hydration. Tolerating clear liquids with no nausea, passing flatus, no bowel movement. Vital signs stable. Containing O2 sats in the high 90s on room air. Afebrile, WBC 19. No tachycardia. 03/13/2019. 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 Pain currently subsided. Tolerating full liquid diet with no nausea vomiting or diarrhea. Bowel movements 2, passing flatus. Ambulating, tolerated exertion well. Vital signs stable. Afebrile, WBC trending down, 17.5. No tachycardia. Objective - Vital Signs Vital signs: Vital Signs Temp 98.6 F 03/13/19 13:12 Pulse 60 03/13/19 13:12 Resp 16 03/13/19 13:12 BP 132/68 03/13/19 13:12 Pulse Ox 96 03/13/19 13:12 Intake & Output 03/12/19 03/13/19 03/13/19 18:59 06:59 18:59 Intake Total 700 Balance 700 Intake: Intake, IV Titration 700 Amount Sodium Chloride 0.9% 1, 700 000 ml @ 100 mls/hr IV . Q10H [facility] Rx#:[id number] Other: Voiding Method Toilet Urinal # Voids 3 1 2 # Bowel Movements 1 - Exam PHYSICAL EXAMINATION: Patient is lying in the bed comfortably, no acute distress, awake alert and oriented.. HEENT: Normocephalic. Neck is supple. Pupils reactive. Nostrils clear. Oral cavity is moist. Neck reveals no JVD, carotid bruits, or thyromegaly. CHEST EXAMINATION: Trachea is central. Symmetrical expansion. Lung paredes clear, no rhonchi, crackles or wheezing CARDIAC: Normal S1, S2 with no gallops. No murmurs ABDOMEN: Soft. Nontender. Nondistended, Bowel sounds initially. No organomegaly. Extremities: reveal no edema. No clubbing or cyanosis Neurologically awake, alert, oriented x3 with well-coordinated movements. No focal deficits noted Skin: No rash or skin lesions. - Labs CBC & Chem 7: 03/13/19 07:18 03/13/19 07:18 Labs: Abnormal Lab Results - Last 24 Hours (Table) 03/12/19 03/12/19 03/13/19 Range/Units 17:35 21:33 07:09 WBC (3.8-10.6) k/uL Neutrophils # (1.3-7.7) k/uL Chloride (98-107) mmol/L BUN (9-20) mg/dL Glucose (74-99) mg/dL POC Glucose (mg/dL) 107 H 156 H 142 H (75-99) mg/dL 03/13/19 03/13/19 03/13/19 Range/Units 07:18 07:18 11:42 WBC 17.5 H (3.8-10.6) k/uL Neutrophils # 15.1 H (1.3-7.7) k/uL Chloride 108 H (98-107) mmol/L BUN 21 H (9-20) mg/dL Glucose 130 H (74-99) mg/dL POC Glucose (mg/dL) 152 H (75-99) mg/dL Assessment and Plan Assessment: Abdominal pain secondary to partial small bowel obstruction. Possible adhesions. Resolved. leukocytosis , patient reports steroid injection 1 week ago, doubt active infection. History of cholecystectomy, back surgery and hernia repair. Hypertension controlled Diabetes type 2 raa-ydvjvwo-asdlqylfw GERD Asthma Chronic back pain and neck pain History of migraine headaches Anxiety/depression, PTSD History of alcohol abuse smoking and marijuana use DVT prophylaxis with heparin subc Plan: Continue on current medication regime ,monitoring and symptomatic treatment. Diet advanced to soft low fiber diet. Increase ambulation as tolerated. Continue monitoring of WBC with labs repeated in a.m. discharge planning in progress for tomorrow, pending surgery clearance, tolerating diet advancement. The impression and plan of care has been dictated as directed. : I performed a history and examination of this patient, discussed the same with the dictator. I agree with the dictator's note ,documented as a scribe. Any additional findings or plans will be noted.
[2019-03-13 17:08] LABS: Glucose,Whole Blood 172 mg/dL (75-99)
[2019-03-13 19:03] LABS: Glucose,Whole Blood 207 mg/dL (75-99)
[2019-03-13 21:13] LABS: Glucose,Whole Blood 108 mg/dL (75-99)
[2019-03-13] MEDS: lamoTRIgine 100 MG TAB PO SCH (21:18)
[2019-03-14] MEDS: HEPARIN SODIUM,PORCINE 5,000 UNIT/ML 1 ML VIAL SQ SCH ×2 (00:11→08:41)
[2019-03-14] MEDS: CYCLOBENZAPRINE 5 MG TAB PO PRN (01:37)
[2019-03-14] MEDS: SODIUM CHLORIDE 0.9% 1,000 ML IV SCH ×2 (01:56→13:59)
[2019-03-14 07:43] LABS: Glucose,Whole Blood 127 mg/dL (75-99)
[2019-03-14 08:05] VITALS: BP 157/83; TEMP 97.8
[2019-03-14] MEDS: INSULIN ASPART (NovoLOG) 100 UNIT/ML VIAL SQ SCH ×2 (08:27→12:22)
[2019-03-14] MEDS: MONTELUKAST 10 MG TAB PO SCH (08:41)
[2019-03-14] MEDS: LISINOPRIL 10 MG TAB PO SCH (08:41)
[2019-03-14] MEDS: DULoxetine HCL 20 MG CAPSULE.DR PO SCH (08:41)
[2019-03-14] MEDS: amLODIPine 5 MG TAB PO SCH (08:41)
[2019-03-14 09:51] LABS: Basophils % (A) 0 %; Eosinophils % (A) 0 %; HCT 44.8 % (39.0-53.0); HGB 14.6 gm/dL (13.0-17.5); Lymphocytes # (A) 0.9 k/uL (1.0-4.8); Lymphocytes % (A) 5 %; MCHC 32.5 g/dL (31.0-37.0); MCV 92.2 fL (80.0-100.0); Monocytes # (A) 0.7 k/uL (0-1.0); Monocytes % (A) 4 %; Neutrophils # (A) 15.9 k/uL (1.3-7.7); Neutrophils % (A) 90 %; Platelet Count 175 k/uL (150-450); RBC 4.86 m/uL (4.30-5.90); RDW 13.3 % (11.5-15.5); WBC 17.7 k/uL (3.8-10.6)
[2019-03-14 10:06] LABS: African American GFR (CKD) >90 (>60 ml/min/1.73 sqM); Anion Gap 7 mmol/L; Blood Urea Nitrogen 20 mg/dL (9-20); Calcium 8.7 mg/dL (8.4-10.2); Carbon Dioxide 24 mmol/L (22-30); Chloride 106 mmol/L (98-107); Glucose 224 mg/dL (74-99); Potassium 4.3 mmol/L (3.5-5.1); Sodium 137 mmol/L (137-145)
[2019-03-14] MEDS: KETOROLAC 30 MG/ML 1 ML VIAL IVP PRN (11:01)
[2019-03-14 12:21] LABS: Glucose,Whole Blood 136 mg/dL (75-99)
--- NOTE | 2019-03-14 15:58 | P.DS ---
Providers Date of admission: 03/11/19 12:42 Expected date of discharge: 03/14/19 Attending physician: Rufus Dodd MD Consults: 03/11/19 12:42 Consult Physician Urgent Consulting Provider: Ronal Palmubo Consult Reason/Comments: Partial small bowel obstruction Do you want consulting provider notified?: Yes Primary care physician: Evelia Dodd Hospital Course: Final Diagnoses: Abdominal pain secondary to partial small bowel obstruction. Possible adhesions. Resolved. leukocytosis , patient reports steroid injection 1 week ago, doubt active infection. History of cholecystectomy, back surgery and hernia repair. Hypertension controlled Diabetes type 2 hrf-jemlncq-wmtsohjlz GERD Asthma Chronic back pain and neck pain History of migraine headaches Anxiety/depression, PTSD History of alcohol abuse smoking and marijuana use Hospital course:Patient is a 68-year-old male with a known history of hypertension, diabetes type 2, anxiety/depression, PTSD and other multiple medical problems and previous history of back surgery and abdominal surgery / hernia repair came to ER with complaints of abdominal pain mainly right lower abdominal pain. Patient says that his abdominal pain is getting worse for the last 2 days. Patient states that his abdominal discomfort is present for the past 1 week and is relieved by itself. Denied any diarrhea. No constipation. No recent illnesses. No complaints of chest pain or shortness of breath. No fever no chills. No bowel or bladder incontinence. Patient does have a history of chronic back pain and also history of extensive back surgery. Denied any narcotic pain medication use. CT abdomen and pelvis showed moderate proximal small bowel dilation with transition point in the mid abdomen. Partial small bowel obstruction versus enteritis. Postsurgical changes in the spine. 03/12/2019 Evaluated by surgery, no surgical recommendations at this time. Maintained on IV fluid hydration. Tolerating clear liquids with no nausea, passing flatus, no bowel movement. Vital signs stable. Containing O2 sats in the high 90s on room air. Afebrile, WBC 19. No tachycardia. 03/13/2019. 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 Pain currently subsided. Tolerating full liquid diet with no nausea vomiting or diarrhea. Bowel movements 2, passing flatus. Ambulating, tolerated exertion well. Vital signs stable. Afebrile, WBC trending down, 17.5. No tachycardia. Tolerating soft low fiber diet. Positive bowel movements. Denies abdominal pain. Reports chronic left lateral lower back pain relieved with Flexeril. Significant clinical improvement. Patient will be discharged home today in a stable condition with guarded prognosis pending surgeries clearance. Exam PHYSICAL EXAMINATION: GENERAL Alert & Oriented X3, no acute distress CHEST EXAMINATION: Lung paredes clear, no rhonchi, crackles or wheezing CARDIAC: Normal S1, S2 with no gallops. No murmurs ABDOMEN: Soft. Nontender. Nondistended, Bowel sounds initially. No organomegaly. Neurologically No focal deficits noted The impression and plan of care has been dictated as directed. : I performed a history and examination of this patient, discussed the same with the dictator. I agree with the dictator's note ,documented as a scribe. Any additional findings or plans will be noted. Patient Condition at Discharge: Stable Plan - Discharge Summary New Discharge Prescriptions: New Ciprofloxacin HCl [Cipro] 500 mg PO Q12HR #10 tablet Continue Cyclobenzaprine [Flexeril] 10 mg PO TID PRN PRN Reason: muscle relaxant Lisinopril [Zestril] 10 mg PO DAILY #30 tab amLODIPine [Norvasc] 5 mg PO DAILY #30 tab Ipratropium Humphrey [Atrovent Hfa] 2 puff INHALATION RT-QID PRN PRN Reason: Shortness Of Breath Dapagliflozin Propanediol [Farxiga] 10 mg PO DAILY lamoTRIgine [LaMICtal] 100 mg PO HS DULoxetine HCL [Cymbalta] 20 mg PO DAILY Montelukast [Singulair] 10 mg PO DAILY Discharge Medication List Cyclobenzaprine [Flexeril] 10 mg PO TID PRN 06/11/15 [History] Lisinopril [Zestril] 10 mg PO DAILY #30 tab 07/04/15 [Rx] amLODIPine [Norvasc] 5 mg PO DAILY #30 tab 07/04/15 [Rx] Ipratropium Humphrey [Atrovent Hfa] 2 puff INHALATION RT-QID PRN 05/21/16 [History] Dapagliflozin Propanediol [Farxiga] 10 mg PO DAILY 05/26/18 [History] DULoxetine HCL [Cymbalta] 20 mg PO DAILY 03/11/19 [History] Montelukast [Singulair] 10 mg PO DAILY 03/11/19 [History] lamoTRIgine [LaMICtal] 100 mg PO HS 03/11/19 [History] Ciprofloxacin HCl [Cipro] 500 mg PO Q12HR #10 tablet 03/14/19 [Rx] Follow up Appointment(s)/Referral(s): Evelia Ddod DO [Primary Care Provider] - 03/19/19 1:00 pm Ronal Palumbo DO [Doctor of Osteopathic Medicine] - As Needed Ambulatory/Diagnostic Orders: Complete Blood Count w/diff [LAB.AMB] Time Frame: 3 Days, Location: None Selected Patient Instructions/Handouts: Bowel Obstruction (DC) Activity/Diet/Wound Care/Special Instructions: Low fiber, diabetic diet. Activity as tolerated. Discharge Disposition: HOME SELF-CARE
== END 2019-03-14 15:18 | disposition home or self-care (01) | DRG 390 ==
LOC: EC 09:44 → 4SSUR 12:42 → 4MS4W 13:36
PROVIDERS: ADMIT Family Medicine; ATTEND Family Medicine
DX: K56.51 Intestinal adhesions [bands], with partial obstruction (principal); K76.0 Fatty (change of) liver, not elsewhere classified; E11.9 Type 2 diabetes mellitus without complications; K21.9 Gastro-esophageal reflux disease without esophagitis; I10 Essential (primary) hypertension; F41.8 Other specified anxiety disorders; J45.909 Unspecified asthma, uncomplicated; M54.2 Cervicalgia; G89.29 Other chronic pain; M54.5 Low back pain; F43.10 Post-traumatic stress disorder, unspecified; L40.9 Psoriasis, unspecified; I25.2 Old myocardial infarction; M19.90 Unspecified osteoarthritis, unspecified site; F10.11 Alcohol abuse, in remission; F17.210 Nicotine dependence, cigarettes, uncomplicated; Z71.6 Tobacco abuse counseling; Z79.84 Long term (current) use of oral hypoglycemic drugs; Z79.899 Other long term (current) drug therapy; Z86.14 Personal history of Methicillin resistant Staphylococcus aureus infection; Z87.01 Personal history of pneumonia (recurrent); Z86.73 Personal history of transient ischemic attack (TIA), and cerebral infarction without residual deficits; Z87.892 Personal history of anaphylaxis; Z98.890 Other specified postprocedural states; Z90.49 Acquired absence of other specified parts of digestive tract; Z86.69 Personal history of other diseases of the nervous system and sense organs; Z88.8 Allergy status to other drugs, medicaments and biological substances; Z91.048 Other nonmedicinal substance allergy status
CPT/HCPCS: 36415; 74177; 80048; 80053; 81003; 82150; 83605; 83690; 85025; 96361; 96374; 99285

== ENCOUNTER → 2020-03-18 | Outpatient (CLI) | payer MEDICARE, OTHER ==
[2020-03-18 11:43] LABS: African American GFR (CKD) >90 (>60 ml/min/1.73 sqM); Blood Urea Nitrogen 19 mg/dL (9-20); Non-African American GFR(CKD) 80 (>60 ml/min/1.73 sqM)
--- NOTE | 2020-03-18 15:41 | CT ---
EXAMINATION TYPE: CT abdomen pelvis w con DATE OF EXAM: 03/18/2020 COMPARISON: 03/11/2019 INDICATION: Diverticulitis DLP: 1560 mGycm, Automated exposure control for dose reduction was used. CONTRAST: 100 mL of Isovue 300. Study performed with Oral Contrast TECHNIQUE: Axial images were obtained from above the diaphragm to the pubic rami in the axial plane a t 5 mm thick sections. Reconstructed images are reviewed on the computer in the coronal plane. FINDINGS: Limited CT sections are obtained the lung bases. The lung bases are clear. CT ABDOMEN: Liver: There is mild fatty infiltration liver. No discrete masses are evident. Spleen: Normal. Small splenule is at the inferior tip of the spleen. Pancreas: Normal Adrenal glands: The adrenal glands are normal. Gallbladder: Not visualized. Correlate with surgical history. Kidneys: No masses are evident. No hydronephrosis is present. No cysts are present. Delayed images were obtained through the kidneys, which remain unremarkable. Aorta: Vascular calcification is within the aorta. Inferior vena cava: Normal. CT PELVIS: Fecal debris is through the colon. There are a few scattered diverticuli within the colon and greater in the sigmoid colon. Suspicious inflammatory changes adjacent suggest acute diverticulitis is not e vident. There are loops of bowel which are incompletely distended or lack oral contrast limiting thei r evaluation. Oral contrast extends to the distal ileum. Obstruction is not identified Appendix: Normal as visualized. Urinary bladder: Decompressed causing limited evaluation. Genitourinary structures: Prostate is somewhat prominent is inferior impression on the urinary bladde r. Osseous structures: There is a lytic area within the left pubic symphysis may be a bone island. Solit isha Sclerotic metastasis is less likely. Postsurgical changes are within the lumbar spine. There is a fat-containing left inguinal hernia. IMPRESSIONS: 1. Mild diverticulosis without evidence of acute diverticulitis. 2. Moderate fecal retention. 3. Fat-containing left inguinal hernia.
== END | disposition home or self-care (01) ==
LOC: RADCTMAIN 10:40
PROVIDERS: ATTEND Surgery
DX: K57.32 Diverticulitis of large intestine without perforation or abscess without bleeding (principal); K40.90 Unilateral inguinal hernia, without obstruction or gangrene, not specified as recurrent; K59.00 Constipation, unspecified
CPT/HCPCS: 82565; 84520; 74177; 36415; Q9967

== ENCOUNTER 2020-04-02 08:00 | Day surgery (SDC) | payer MEDICARE, OTHER ==
[2020-03-31 10:34] VITALS: BMI 26.6
[~2020-04-02 08:00] MED LIST changes: +ACETAMINOPHEN TAB 500 MG TAB PO ONE; -ALBUTEROL NEBULIZED 2.5 MG/3 ML INHALATION STA; +DEXAMETHASONE SOD PHOSPHATE 10 MG/ML 1 ML VIAL IV ONE; +HEPARIN SODIUM,PORCINE 5,000 UNIT/ML 1 ML VIAL SQ ONE; +HYDROmorphone 0.5 MG/0.5 ML SYRINGE IVP PRN; +LIDOCAINE 1% (10MG/ML) FOR IV START INTRADERMA PRN; -LIDOCAINE 1% 20 ML VIAL (10MG/ML) FOR IV START INTRADERMA PRN; -LIDOCAINE 1% INJ 10MG/ML (20 ML MDV) ONE; -LIDOCAINE 4% (PF) 5 ML AMP IH STA; -MIDAZOLAM (PF) 2 MG/2 ML VIAL IV PRN; +MIDAZOLAM 2 MG/2 ML VIAL IV PRN; +ONDANSETRON 4 MG/2 ML VIAL IVP ONE; -PROPOFOL 10 MG/ML 20 ML VIAL IV ONE
[2020-04-02 09:31] LABS: Glucose,Whole Blood 171 mg/dL (75-99)
[2020-04-02] MEDS ORDERED: MIDAZOLAM 2 MG/2 ML VIAL IVP ONE (10:05)
[2020-04-02 10:13] LABS: Basophils % (A) 0 %; Eosinophils % (A) 0 %; HCT 50.1 % (39.0-53.0); HGB 16.4 gm/dL (13.0-17.5); Lymphocytes # (A) 1.4 k/uL (1.0-4.8); Lymphocytes % (A) 11 %; MCH 30.7 pg (25.0-35.0); MCHC 32.7 g/dL (31.0-37.0); MCV 93.8 fL (80.0-100.0); Mean Platelet Volume 7.5; Monocytes # (A) 0.6 k/uL (0-1.0); Monocytes % (A) 4 %; Neutrophils # (A) 10.2 k/uL (1.3-7.7); Neutrophils % (A) 82 %; Platelet Count 206 k/uL (150-450); RBC 5.34 m/uL (4.30-5.90); RDW 13.3 % (11.5-15.5); WBC 12.5 k/uL (3.8-10.6)
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
[2020-04-02] MEDS ORDERED: METOPROLOL TARTRATE 5 MG/5 ML VIAL IVP ONE (10:45)
[2020-04-02] MEDS ORDERED: SUCCINYLCHOLINE CHLORIDE 100 MG/5 ML SYR IV ONE (10:45)
[2020-04-02] MEDS ORDERED: ROCURONIUM 10 MG/ML (10 ML VIAL) IV ONE (10:45)
[2020-04-02] MEDS ORDERED: HYDROmorphone (PF) 1 MG/ML ONE (10:45)
[2020-04-02] MEDS ORDERED: LIDOCAINE 1% INJ 10MG/ML (20 ML MDV) ONE (10:45)
[2020-04-02] MEDS ORDERED: NALOXONE 0.4 MG/ML 1 ML VIAL ONE (10:45)
[2020-04-02] MEDS ORDERED: MIDAZOLAM 2 MG/2 ML VIAL ONE (10:45)
[2020-04-02] MEDS ORDERED: LABETALOL 5 MG/ML VIAL MDV ONE (10:45)
[2020-04-02] MEDS ORDERED: KETOROLAC 15 MG/ML 1 ML VIAL ONE (10:45)
[2020-04-02] MEDS ORDERED: fentaNYL (PF) 50 MCG/ML 2 ML AMP ONE (10:45)
[2020-04-02] MEDS ORDERED: PROPOFOL 10 MG/ML 20 ML VIAL IV ONE (10:45)
[2020-04-02] MEDS ORDERED: KETAMINE 10 MG/ML 20 ML VIAL ONE (10:45)
[2020-04-02] MEDS ORDERED: hydrALAZINE HCL 20 MG/ML 1 ML VIAL ONE (10:45)
[2020-04-02] MEDS ORDERED: BUPIVACAINE (PF) 0.25% 30 ML VIAL SQ ONE (11:08)
--- NOTE | 2020-04-02 11:30 | P.OP ---
Date of Procedure: 04/02/20 Preoperative Diagnosis: Recurrent left inguinal hernia Postoperative Diagnosis: Recurrent left inguinal hernia Procedure(s) Performed: Laparoscopic robotic-assisted repair of Left inguinal hernia Anesthesia: ZACHERY Surgeon: Adrián Cook Estimated Blood Loss (ml): 5 Pathology: none sent Condition: stable Disposition: PACU Description of Procedure: The patient's placed on the operating table in the supine position. The patient received general anesthesia. The patient's abdomen was prepped and draped in usual sterile fashion. The skin was anesthetized 1% local Xylocaine at the incision sites. Using an 11 blade a skin incision was made at the umbilicus. The fascia was grasped with a Fatmata and then the peritoneal cavity was entered with the Veress needle. Position of the Veress needle was confirmed with a positive drop test. After adequate insufflation a 5 mm trocar was placed into the peritoneal cavity. The Laparoscope was placed the peritoneal cavity. And a robotic 8 mm trocar was placed in the right lateral position and then another 8 mm robotic trochars placed in the left lateral position. The original 5 mm trocar was exchanged for a 12 mm trocar. The patient was placed in reverse Trendelenburg and then the patient was docked to the robot. Next the peritoneum over top of the hernia was incised and then using blunt and sharp dissection and electrocautery the hernia sac was dissected free from the floor of the inguinal canal. The hernia sac was completely reduced into the peritoneal cavity. And then using the Pro resin mixer mesh the hernia was repaired. The peritoneum was then sutured with 20V lock suture. The patient was then undocked the robot. The needle was withdrawn from the peritoneal cavity. The umbilical trocar site was closed with 0 Ethibond suture. The skin was closed interrupted 3-0 Monocryl suture. Dermabond dressing was applied. Patient was sent to recovery in stable condition.
[2020-04-02 11:56] LABS: Glucose,Whole Blood 221 mg/dL (75-99)
[2020-04-02 12:13] VITALS: TEMP 96.8
[2020-04-02 12:27] VITALS: RESP 16
[2020-04-02] MEDS ORDERED: INSULIN REGULAR 100 UNIT/ML VIAL SQ ONE (12:32)
[2020-04-02 13:46] LABS: Glucose,Whole Blood 222 mg/dL (75-99)
[2020-04-02 13:47] VITALS: BP 164/87; PULSE 65
== END 2020-04-02 14:14 | disposition home or self-care (01) ==
LOC: OR 08:00
PROVIDERS: ATTEND Surgery
DX: K40.91 Unilateral inguinal hernia, without obstruction or gangrene, recurrent (principal); Z88.8 Allergy status to other drugs, medicaments and biological substances; K21.9 Gastro-esophageal reflux disease without esophagitis; E11.65 Type 2 diabetes mellitus with hyperglycemia; K59.09 Other constipation; D68.9 Coagulation defect, unspecified; J45.909 Unspecified asthma, uncomplicated; I10 Essential (primary) hypertension; I25.2 Old myocardial infarction; M19.90 Unspecified osteoarthritis, unspecified site; Z87.01 Personal history of pneumonia (recurrent); K76.0 Fatty (change of) liver, not elsewhere classified; G89.29 Other chronic pain; M54.9 Dorsalgia, unspecified; M54.2 Cervicalgia; M25.512 Pain in left shoulder; M25.511 Pain in right shoulder; M25.562 Pain in left knee; M25.561 Pain in right knee; G43.909 Migraine, unspecified, not intractable, without status migrainosus; L40.9 Psoriasis, unspecified; Z87.19 Personal history of other diseases of the digestive system; Z91.048 Other nonmedicinal substance allergy status; Z86.14 Personal history of Methicillin resistant Staphylococcus aureus infection; Z98.890 Other specified postprocedural states; F41.9 Anxiety disorder, unspecified; F32.9 Major depressive disorder, single episode, unspecified; F43.10 Post-traumatic stress disorder, unspecified; Z87.891 Personal history of nicotine dependence; Z79.84 Long term (current) use of oral hypoglycemic drugs; Z79.891 Long term (current) use of opiate analgesic; Z79.899 Other long term (current) drug therapy; Z79.1 Long term (current) use of non-steroidal anti-inflammatories (NSAID)
CPT/HCPCS: 85025; 49651; C1781; J2250; J0360; J1644; J1100; J2310; J0690; J2405; J2001; J3010; J1170; J1885; J0330; J2704

== ENCOUNTER → 2020-07-30 | Outpatient (CLI) | payer MEDICARE, OTHER ==
[~2020-07-30] MED LIST changes: -ACETAMINOPHEN TAB 500 MG TAB PO ONE; -DEXAMETHASONE SOD PHOSPHATE 10 MG/ML 1 ML VIAL IV ONE; -HEPARIN SODIUM,PORCINE 5,000 UNIT/ML 1 ML VIAL SQ ONE; -HYDROmorphone 0.5 MG/0.5 ML SYRINGE IVP PRN; -LACTATED RINGERS 1,000 ML IV SCH; -LIDOCAINE 1% (10MG/ML) FOR IV START INTRADERMA PRN; -MIDAZOLAM 2 MG/2 ML VIAL IV PRN; -ONDANSETRON 4 MG/2 ML VIAL IVP ONE; +REGADENOSON 0.4 MG/5 ML SYRINGE IV PRN
--- NOTE | 2020-07-30 14:06 | EST ---
EXERCISE STRESS AGE: 70 SEX: Male HT: 5'8" WT: 185 PROTOCOL: Lexiscan STAGE: N/A DURATION OF EXERCISE: 5 min. HEART RATE REST: 78 BLOOD PRESSURE REST: 140/86 MAXIMUM HEART RATE ACHIEVED: 100 MAXIMUM BLOOD PRESSURE: 155/92 85% MPHR: 128 100% MPHR: 151 METS: N/A INDICATIONS: Cardiovascular disease. CLINICAL INFORMATION: Baseline rhythm is sinus mechanism, rate 78, normal axis, borderline intraventricular conduction delay. Baseline blood pressure 140/86 mmHg. Patient received an injection of Lexiscan. Electrocardiograph monitoring revealed no evidence of diagnostic ischemic ST deviation. Cardiolite was injected per protocol. CONCLUSION: 1. Nondiagnostic electrocardiograph stress testing. 2. Nuclear images will be reported separately. MMODL / IJN: [id number] /
--- NOTE | 2020-07-30 19:03 | NM ---
EXAMINATION TYPE: NM stress lexiscan cardiolite DATE OF EXAM: 07/30/2020 COMPARISON: NONE HISTORY: 70-year-old male I25.10, cardiovascular disease. Patient reports chest pain, difficulty dayo thing, hypertension, diabetes, family history, prior [place] and catheterization. TECHNIQUE: After the intravenous administration of 9.77 mCi Tc 99m Sestamibi - Cardiolite resting SP ECT images acquired 45 minutes post injection. The patient received 0.4mg Lexiscan, 25.8 mCi Tc 99m Sestamibi - Stress images obtained [address] injection FINDINGS: Review of stress and rest SPECT images demonstrates moderate to large area of decreased perfusion vita ng the mid to basal inferior wall which becomes larger on rest images in part suggesting diaphragmati c attenuation. No discrete reversibility is seen. Gated analysis shows estimated left ventricular eje ction fraction of 79 %. TID calculated at 0.96, within normal limits. IMPRESSION: Decreased perfusion along the mid to basal inferior wall likely in large part due to diaphragmatic at tenuation artifact as the defect is larger on rest imaging. Correlate to exclude the possibility of a n underlying prior inferior wall infarct. No discrete reversibility is seen.
== END | disposition home or self-care (01) ==
LOC: RADNMMAIN 07:39
PROVIDERS: ATTEND Family Medicine
DX: R94.8 Abnormal results of function studies of other organs and systems (principal); I25.10 Atherosclerotic heart disease of native coronary artery without angina pectoris
CPT/HCPCS: 93017; 78452; A9500; J2785

== ENCOUNTER 2021-03-13 07:16 | Day surgery (SDC) | payer MEDICARE, OTHER ==
[2021-03-02 16:19] VITALS: BMI 26.6
[~2021-03-13 07:16] MED LIST changes: +LACTATED RINGERS 1,000 ML IV SCH; -REGADENOSON 0.4 MG/5 ML SYRINGE IV PRN
[2021-03-13 07:51] VITALS: RESP 16; TEMP 97.3
[2021-03-13 08:00] LABS: Glucose,Whole Blood 164 mg/dL (75-99)
[2021-03-13] MEDS ORDERED: PROPOFOL 10 MG/ML 20 ML VIAL IV ONE (08:13)
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
--- NOTE | 2021-03-13 08:26 | P.OP ---
Date of Procedure: 03/13/21 Preoperative Diagnosis: Screening colonoscopy Postoperative Diagnosis: Normal colonoscopy Procedure(s) Performed: Colonoscopy Anesthesia: MAC Surgeon: Adrián Cook Pathology: none sent Condition: stable Disposition: PACU Description of Procedure: Patient's placed on the endoscopy table in the lateral position. He received IV sedation. Digital rectal exam was performed which revealed no abdomenthe prostate was symmetric without nodules. The flexible colonoscope was then patient anus passed throughout the entire colon. The ileocecal valve was visualized. Cecum, ascending and transverse colon appeared normal. The descending; appeared normal. Scope was brought back the rectum this appeared n ormal scope was withdrawn for patient.
[2021-03-13 08:41] VITALS: BP 139/85; PULSE 75
== END 2021-03-13 09:22 | disposition home or self-care (01) ==
LOC: ORWHC2ENDO 07:16
PROVIDERS: ATTEND Surgery
DX: Z12.11 Encounter for screening for malignant neoplasm of colon (principal); J45.909 Unspecified asthma, uncomplicated; E11.9 Type 2 diabetes mellitus without complications; I10 Essential (primary) hypertension; I25.2 Old myocardial infarction; M19.90 Unspecified osteoarthritis, unspecified site; Z87.01 Personal history of pneumonia (recurrent); K44.9 Diaphragmatic hernia without obstruction or gangrene; K76.0 Fatty (change of) liver, not elsewhere classified; G89.29 Other chronic pain; M54.2 Cervicalgia; M25.512 Pain in left shoulder; M25.511 Pain in right shoulder; M25.569 Pain in unspecified knee; G43.909 Migraine, unspecified, not intractable, without status migrainosus; L40.9 Psoriasis, unspecified; Z91.09 Other allergy status, other than to drugs and biological substances; Z86.14 Personal history of Methicillin resistant Staphylococcus aureus infection; Z85.828 Personal history of other malignant neoplasm of skin; Z90.49 Acquired absence of other specified parts of digestive tract; Z98.890 Other specified postprocedural states; F41.9 Anxiety disorder, unspecified; F32.9 Major depressive disorder, single episode, unspecified; F43.10 Post-traumatic stress disorder, unspecified; Z87.891 Personal history of nicotine dependence; Z79.84 Long term (current) use of oral hypoglycemic drugs; Z79.1 Long term (current) use of non-steroidal anti-inflammatories (NSAID); Z79.899 Other long term (current) drug therapy; Z88.8 Allergy status to other drugs, medicaments and biological substances
CPT/HCPCS: J2704; G0121; 45378

== ENCOUNTER 2023-03-07 11:32 | Emergency (ER) | payer MEDICARE, OTHER ==
[2023-03-07 11:43] VITALS: RESP 18; TEMP 98.2
[2023-03-07] MEDS ORDERED: DIPH,PERTUS(ACELL)TETVAC-LF 0.5 ML VIAL IM ONE (13:30)
[2023-03-07] MEDS ORDERED: TOPICAL SKIN ADHESIVE 1 EACH AMP TOPICAL ONE (13:30)
--- NOTE | 2023-03-07 13:34 | ED ---
General Adult HPI - General Chief complaint: Fall Stated complaint: Fall,nose injury Time Seen by Provider: 03/07/23 13:20 Source: patient, RN notes reviewed Mode of arrival: ambulatory Limitations: no limitations - History of Present Illness Initial comments: Patient is a pleasant 72-year-old male presenting to the emergency department after fall. Patient states he parked vehicle and got out and actually tripped. Patient struck the ground. Patient did hit his nose and does question if he could've broke it. Patient did have abrasion. Patient also slightly bumped his forehead. No headache. No loss of consciousness. No confusion. No nausea vomiting. No coordination problems. Patient is not on any blood thinners. No new neck or back pain. No other area of injury or concern. - Related Data Home Medications Medication Instructions Recorded Confirmed Dapagliflozin Propanediol [Farxiga] 10 mg PO DAILY 05/26/18 03/13/21 lamoTRIgine [LaMICtal] 300 mg PO HS 03/11/19 03/10/21 Atorvastatin [Lipitor] 20 mg PO HS 03/31/20 03/10/21 Celecoxib [CeleBREX] 200 mg PO DAILY 03/31/20 03/13/21 Fluticasone Nasal Cascade [Flonase 1 spray EA NOSTRIL DIRECTED 03/31/20 03/10/21 Nasal Cascade] Glimepiride [Amaryl] 2 mg PO AC-[id number] 03/02/21 03/10/21 Semaglutide [Ozempic] 1 mg SQ Q7D 03/02/21 03/10/21 amLODIPine [Norvasc] 10 mg PO DAILY 03/02/21 03/10/21 busPIRone HCl [Buspar] 5 mg PO BID 03/02/21 03/10/21 Previous Rx's Medication Instructions Recorded lisinopriL [Zestril] 10 mg PO DAILY #30 tab 07/04/15 Allergies Allergy/AdvReac Type Severity Reaction Status Date / Time mold Allergy Anaphylaxis Verified 03/07/23 11:43 /angioedema prochlorperazine AdvReac affected Verified 03/07/23 11:43 [From Compazine] liver function prochlorperazine edisylate AdvReac affected Verified 03/07/23 11:43 [From Compazine] liver function prochlorperazine maleate AdvReac affected Verified 03/07/23 11:43 [From Compazine] liver function Review of Systems ROS Statement: Those systems with pertinent positive or pertinent negative responses have been documented in the HPI. ROS Other: All systems not noted in ROS Statement are negative. Constitutional: Denies: fever Eyes: Denies: eye pain ENT: Reports: as per HPI. Denies: ear pain Respiratory: Denies: cough Cardiovascular: Denies: chest pain Neurological: Reports: as per HPI. 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 Last Myocardial Infarction Date:: 2006 History of Any Multi-Drug Resistant Organisms: MRSA Date of last positivie culture/infection: 2009 MDRO Source:: left eye & nasal Past Surgical History: Back Surgery, Cholecystectomy, Heart Catheterization, Hernia Repair, Orthopedic Surgery Additional Past Surgical History / Comment(s): pain procedures; arthroscopic knee surg & bernabe. shoulder ; hernia repair, eye lid surgery ; sinus polyps, mike fundloplication Past Anesthesia/Blood Transfusion Reactions: Previous Problems w/ Anesthesia Additional Past Anesthesia/Blood Transfusion Reaction / Comment(s): very slow to wake up, aspirated during an egd procedure Past Psychological History: Anxiety, Depression, PTSD Smoking Status: Former smoker Past Alcohol Use History: Daily Past Drug Use History: Marijuana - Past Family History Mother Family Medical History: No Reported History General Exam Limitations: no limitations General appearance: alert, in no apparent distress Head exam: Present: other (Mild abrasion left lower forehead) Eye exam: Present: normal appearance, PERRL, EOMI ENT exam: Present: normal oropharynx, other (Nasal abrasions/skin tear with nasal tenderness. No septal hematoma.) Neck exam: Present: normal inspection. Absent: tenderness Respiratory exam: Present: normal lung sounds bilaterally Cardiovascular Exam: Present: regular rate, normal rhythm GI/Abdominal exam: Present: soft. Absent: tenderness Extremities exam: Present: normal inspection, full ROM, tenderness (Minimal tenderness left palm) Neurological exam: Present: alert, oriented X3, CN II-XII intact. Absent: motor sensory deficit Expanded Neurological exam: Present: protecting the airway Speech: Present: fluid speech Cranial nerves: EOM's Intact: Normal Sensory exam: Upper Extremity Light Touch: Normal, Lower Extremity Light Touch: Normal Motor strength exam: RUE: 5, LUE: 5, RLE: 5, LLE: 5 Eye Response: (4) open spontaneously Motor Response: (6) obeys commands Verbal Response: (5) oriented Psychiatric exam: Present: normal affect, normal mood Skin exam: Present: normal color Course Vital Signs 03/07/23 11:40 Temperature 98.2 F Pulse Rate 60 Respiratory 18 Rate Blood Pressure 138/71 O2 Sat by Pulse 98 Oximetry Procedures - Laceration Laceration #1 Consent Obtained: verbal consent Indication: laceration Site: face Size (cm): 1 Description: irregular Depth: simple, single layer Pre-repair: irrigated extensively Type of Sutures: other (Closed with exofen) Patient Tolerated Procedure: well, no complications Medical Decision Making - Medical Decision Making Patient has trace tenderness left palm. X-rays were offered however patient refuses, not feeling is necessary. Was pt. sent in by a medical professional or institution ([facility], [employer], urgent care, hospital, or fdc...) When possible be specific @ -[No] Did you speak to anyone other than the patient for history (EMS, parent, family, police, friend...)? What history was obtained from this source @ -[No] Did you review nursing and triage notes (agree or disagree)? Why? @ -[I reviewed and agree with nursing and triage notes] Were old charts reviewed (outside hosp., previous admission, EMS record, old EKG, old radiological studies, urgent care reports/EKG's, fdc records)? Report findings @ -[No old charts were reviewed] Differential Diagnosis (chest pain, altered mental status, abdominal pain women, abdominal pain men, vaginal bleeding, weakness, fever, dyspnea, syncope, headache, dizziness, GI bleed, back pain, seizure, CVA, palpatations, mental health, musculoskeletal)? @ -Differential Musculoskeletal Muscular strain, contusion, ligament sprain, fracture, arthritis, septic arthritis, bursitis, cellulitis, muscle spasm, nerve compression, DVT, arterial occlusion, herpes zoster, electrolyte abnormality, tumor.... This is not meant to be in all inclusive list EKG interpreted by me (3pts min.). @ -[As above] X-rays interpreted by me (1pt min.). @ -Nasal x-ray without definitive fracture CT interpreted by me (1pt min.). @ -[None done] U/S interpreted by me (1pt. min.). @ -[None done] What testing was considered but not performed or refused? (CT, X-rays, U/S, labs)? Why? @ -[None] What meds were considered but not given or refused? Why? @ -[None] Did you discuss the management of the patient with other professionals (professionals i.e. , PA, [employer], lab, RT, psych nurse, social media editor, chemical instrumentation officer, teacher, seaman officer, case managers)? Give summary @ -[No] Was smoking cessation discussed for >3mins.? @ -[No] Was critical care preformed (if so, how long)? @ -[No] Were there social determinants of health that impacted care today? How? (Homelessness, low income, unemployed, alcoholism, drug addiction, transportation, low edu. Level, literacy, decrease access to med. care, half-way, rehab)? @ -[No] Was there de-escalation of care discussed even if they declined (Discuss DNR or withdrawal of care, Hospice)? DNR status @ -[No] What co-morbidities impacted this encounter? (DM, HTN, Smoking, COPD, CAD, Cancer, CVA, ARF, Chemo, Hep., AIDS, mental health diagnosis, sleep apnea, morbid obesity)? @ -[None] Was patient admitted / discharged? Hospital course, mention meds given and route, prescriptions, significant lab abnormalities, going to OR and other pertinent info. @ -Nasal wound closed with exofin. Patient reevaluated and updated. Patient will be discharged with follow-up Undiagnosed new problem with uncertain prognosis? @ -[No] Drug Therapy requiring intensive monitoring for toxicity (Heparin, Nitro, Insulin, Cardizem)? @ -[No] Were any procedures done? @ -See above Diagnosis/symptom? @ -Nasal Contusion. Nasal laceration Acute, or Chronic, or Acute on Chronic? @ -Acute, acute Uncomplicated (without systemic symptoms) or Complicated (systemic symptoms)? @ -[default] Side effects of treatment? @ -[No] Exacerbation, Progression, or Severe Exacerbation? @ -[No] Poses a threat to life or bodily function? How? (Chest pain, USA, PR, pneumonia, PE, COPD, DKA, ARF, appy, cholecystitis, CVA, Diverticulitis, Homicidal, Suicidal, threat to staff... and all critical care pts) @ -[No] Disposition Clinical Impression: Fall, Head contusion, Nasal contusion, Nasal laceration Disposition: HOME SELF-CARE Condition: Stable Instructions (If sedation given, give patient instructions): Skin Adhesive Care (ED), Head Injury (ED) Additional Instructions: Please do follow-up with primary care physician in the next couple of days for recheck. Return for confusion, vomiting, coordination problems, difficulty walking, increased pain, worsening symptoms or any other concerns. Please follow-up with your eye doctor in the next day or 2 for recheck as well. Is patient prescribed a controlled substance at d/c from ED?: No Referrals: Rufus Dodd MD [Primary Care Provider] - 1-2 days Time of Disposition: 14:56
--- NOTE | 2023-03-07 14:08 | XR ---
EXAMINATION TYPE: XR nasal bone DATE OF EXAM: 03/07/2023 1:50 PM CLINICAL INDICATION:Male, 72 years old with history of fall; COMPARISON: None TECHNIQUE: Nasal bridge was evaluated in three views. Frontal and bilateral lateral FINDINGS: The anterior nasal spine has a normal radiographic appearance as well. The nasal septum projects a midline appearance. Limited evaluation of the paranasal sinuses demonstrates normal aeration. IMPRESSION: No convincing evidence for nasal bone fracture. Consider CT maxillofacial if clinically warranted.
[2023-03-07 16:19] VITALS: BP 136/68; PULSE 66
== END 2023-03-07 16:18 | disposition home or self-care (01) ==
LOC: EC 11:32
DX: S01.21XA Laceration without foreign body of nose, initial encounter (principal); J45.909 Unspecified asthma, uncomplicated; E11.9 Type 2 diabetes mellitus without complications; I10 Essential (primary) hypertension; I25.2 Old myocardial infarction; M19.90 Unspecified osteoarthritis, unspecified site; F41.9 Anxiety disorder, unspecified; F32.A Depression, unspecified; Z87.891 Personal history of nicotine dependence; F12.90 Cannabis use, unspecified, uncomplicated; Z88.8 Allergy status to other drugs, medicaments and biological substances; Z79.84 Long term (current) use of oral hypoglycemic drugs; Z79.899 Other long term (current) drug therapy; Z23 Encounter for immunization; W01.0XXA Fall on same level from slipping, tripping and stumbling without subsequent striking against object, initial encounter
CPT/HCPCS: 12011; 70160; 90471; 90715; 99284